=== PATIENT | male | born 1980 | race Caucasian/White ===

== ENCOUNTER 2022-01-21 09:09 | Outpatient (CLI) | payer OTHER | END 2022-01-21 09:14 | disposition home or self-care (01) | LOC: LAB 09:09 | DX: D53.9 Nutritional anemia, unspecified (principal); E11.40 Type 2 diabetes mellitus with diabetic neuropathy, unspecified; N39.0 Urinary tract infection, site not specified; E78.49 Other hyperlipidemia; E03.4 Atrophy of thyroid (acquired); Z12.5 Encounter for screening for malignant neoplasm of prostate; R19.5 Other fecal abnormalities; I10 Essential (primary) hypertension; I06.9 Rheumatic aortic valve disease, unspecified ==